=== PATIENT | male | born 1970 | race Caucasian/White ===

== ENCOUNTER 2017-12-18 04:19 | Inpatient (IN) | payer MEDICARE, OTHER ==
[~2017-12-18] VITALS: Ht 180.3 cm; Wt 63.5 kg
--- NOTE | 2017-12-18 04:40 | NUR ---
PT BIB [facility]09 PRESENTING W/ C/O RT HIP/BUTTOCKS ABSCESS R/T IV DRUG USE. 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 PT IS A&OX4. NO CO, NO SOB.
--- NOTE | 2017-12-18 04:46 | NUR ---
DR MARÍA MARTIN MD AT BEDSIDE FOR MSE.
[2017-12-18] MEDS ORDERED: VANCOMYCIN IV 1,000 MG in IV DEXTROSE 5% 250 ML IV ONE (05:00)
[2017-12-18] MEDS ORDERED: IV NORMAL SALINE 1000 ML BAG IV ONE ×2 (05:00→07:15)
[2017-12-18] MEDS ORDERED: MORPHINE SULFATE 2 MG/1 ML DISP.SYRIN IV ONE (05:00)
[2017-12-18] MEDS ORDERED: CLINDAMYCIN PHOSPHATE IV 900 MG in IV DEXTROSE 5% 100 ML IV ONE (05:00)
[2017-12-18] MEDS ORDERED: CLINDAMYCIN PHOSPHATE 900 MG/6 ML VIAL ONE (05:07)
[2017-12-18] MEDS ORDERED: VANCOMYCIN IV 200 ML ONE (05:09)
[2017-12-18] MEDS ORDERED: MORPHINE SULFATE 4 MG/1 ML DISP.SYRIN ONE ×3 (05:09→11:36)
--- NOTE | 2017-12-18 05:15 | NUR ---
LAB AT PT BEDSIDE FOR BLOOD DRAW.
[2017-12-18] MEDS ORDERED: CEFTRIAXONE 1 G VIAL ONE (06:00)
[2017-12-18] MEDS ORDERED: LIDOCAINE HCL 2% 20 ML VIAL ONE (06:00)
[2017-12-18] MEDS ORDERED: ONDANSETRON 4 MG/2 ML VIAL ONE ×2 (06:02→06:26)
[2017-12-18] MEDS ORDERED: ONDANSETRON 4 MG/2 ML VIAL IM ONE (06:30)
[2017-12-18] MEDS ORDERED: ONDANSETRON 4 MG/2 ML VIAL IV ONE (06:30)
[2017-12-18] MEDS ORDERED: MORPHINE SULFATE 4 MG/1 ML DISP.SYRIN IM ONE (06:30)
--- NOTE | 2017-12-18 06:30 | NUR ---
AFTER MULTIPLE FAILED ATTEMPTS TO OBTAIN PERIPHERAL IV ACCESS, PT CONSENTED FOR ER MD TO PLACE CENTRAL LINE. AT THIS TIME, THE REMAINING LABS WERE COLLECTED AND SENT TO LAB.
--- NOTE | 2017-12-18 06:41 | NUR ---
RADIOLOGY AT [facility] FOR XRAY
[2017-12-18 06:45] LABS: BASOPHILS % (AUTO) 0.2 % (0.0-2.0); HEMATOCRIT 35.4 % (36.7-47.1); HEMOGLOBIN 12.3 g/dL (12.5-16.3); LYMPHOCYTES # (AUTO) 0.8 K/uL (20.0-40.0); LYMPHOCYTES % (AUTO) 4.4 % (20.5-51.5); MEAN CORPUSCULAR HEMOGLOBIN 28.8 uug (23.8-33.4); MEAN CORPUSCULAR HGB CONC 35 g/dL (32.5-36.3); MEAN CORPUSCULAR VOLUME 82.5 fL (73.0-96.2); MONOCYTES # (AUTO) 1.5 K/uL (2.0-10.0); MONOCYTES % (AUTO) 7.9 % (0.0-11.0); NEUTROPHILS # (AUTO) 16.1 K/uL (1.8-8.9); NEUTROPHILS % (AUTO) 87.5 % (38.5-71.5); PLATELET COUNT (AUTO) 376 K/uL (152-348); RED BLOOD CELL COUNT(AUTO) 4.29 MIL/uL (4.06-5.63); WHITE BLOOD COUNT (AUTO) 18.4 K/uL (3.6-10.2)
[2017-12-18 06:57] LABS: CREATININE 0.8 mg/dL (0.6-1.3); POTASSIUM 3.1 mmol/L (3.5-5.1)
[2017-12-18 07:06] LABS: BILIRUBIN,DIRECT 0.3 mg/dL (0.0-0.2); BILIRUBIN,TOTAL 0.7 mg/dL (0.2-1.0); TOTAL PROTEIN, SERUM 7.6 g/dL (6.4-8.2)
--- NOTE | 2017-12-18 07:26 | NUR ---
REPORT GIVEN TO RUDY ZAIDI.
--- NOTE | 2017-12-18 07:35 | NUR ---
PT IS RESTING IN BED #2B. CODE SEPSIS WAS CALLED BY DR IGLESIAS. CODE SEPSIS PROTOCOL STARTED.
[2017-12-18] MEDS ORDERED: IOHEXOL 300MG/ML 100 ML INFUS..BTL ONE (08:07)
[2017-12-18] MEDS ORDERED: SWABABLE VALVE TRANSFER SET EA MC ONE (08:07)
[2017-12-18] MEDS ORDERED: NORMAL SALINE FLUSH 10 ML DISP.SYRIN ONE (08:07)
[2017-12-18] MEDS ORDERED: IV NORMAL SALINE 100 ML ONE (08:08)
[2017-12-18] MEDS ORDERED: ONDANSETRON 4 MG/2 ML VIAL IV PRN (10:15)
[2017-12-18] MEDS ORDERED: MORPHINE SULFATE 2 MG/1 ML DISP.SYRIN IV PRN (10:15)
[2017-12-18] MEDS ORDERED: ACETAMINOPHEN 325 MG TABLET PO PRN (10:15)
[2017-12-18] MEDS ORDERED: MAGNESIUM HYDROXIDE 30 ML LIQUID UDC PO PRN (10:15)
[2017-12-18] MEDS ORDERED: Z GUARD REMEDY PASTE 57 GM TUBE TOP PRN (10:15)
--- NOTE | 2017-12-18 10:15 | NUR ---
MALINDA PAGE EVALUATED THE PT. PT WAS TRANSFERED TO ROOM #221. REPORT WAS GIVEN TO RUDY M/Amy.
[2017-12-18 10:21] LABS: *BILIRUBIN,URIN NEGATIVE (NEGATIVE); *BLOOD, URINE NEGATIVE (NEGATIVE); *CLARITY,URINE CLEAR (CLEAR); *COLOR,URINE YELLOW (YELLOW); *KETONES,URINE NEGATIVE (NEGATIVE); *PROTEIN,URINE TRACE (NEGATIVE); LEUKOCYTE ESTERASE ,URINE NEGATIVE (NEGATIVE); NITRITE, URINE NEGATIVE (NEGATIVE); UGLUCOSE NEGATIVE (NEGATIVE)
[2017-12-18 10:27] LABS: BACTERIA,URINE FEW /HPF (NONE SEEN); RBC,URINE 0-3 /HPF (0-3); SQUAMOUS EPITHELIAL CELL,UR FEW /HPF (NONE SEEN); WBC,URINE 0-3 /HPF (0-3)
--- NOTE | 2017-12-18 10:40 | NUR ---
RECIEVED PATIENT FROM ER TO ROOM 221 AWAKE ALERT COOPERATE VS TAKEN STABLE RT BUTTOCK ABSCESS SWELLING AND REDNESS SCANT AMT OF DRAINAGE WOUND C&S SENT TO LAB AND PICTURE TAKEN CALL LIGHT IN REACH AND REMIND TO CALL WHEN NEEDED
[2017-12-18] MEDS ORDERED: DEXTROSE 50% 50 ML DISP.SYRIN IV PRN (10:45)
[2017-12-18] MEDS ORDERED: POTASSIUM CHLORIDE 20 MEQ TAB.PRT.SR PO ONE (10:45)
--- NOTE | 2017-12-18 11:00 | NUR ---
DR SELLERS CALL AND STATE WANT TO DO SURGERY FLAQUITO CONSENT FOR I&D OF RT BUTTOCK ABSCESS SIGNS BY PATIENT ORDER AND Renetta PURI CORK MOLDER SEE PATIENT AND ADM ORDER IN CHART
[2017-12-18] MEDS ORDERED: BUPIVACAINE 0.25% 30 ML VIAL ONE (11:08)
[2017-12-18] MEDS ORDERED: LIDOCAINE 1%-EPI 1:100,000 20 ML VIAL ONE (11:08)
[2017-12-18 11:09] VITALS: BP 107/48
--- NOTE | 2017-12-18 11:13 | NUR ---
Clinical Pharmacy Note: Vancomycin Dosing per Pharmacy Subjective: Vancomycin IV to start on this 47 yo male patient for abscess. Patient received vanco 1gm today at 0700 x1 in ED Objective: BUN 17/Scr 0.8 WBC 18.9 Temperature 98.3 ht 180 cm wt 63.5 kg Assessment/Plan: Will start vancomycin 1000mg IVPB Q11hr for predicted vanco trough level of 15.5 mcg/ml at steady state. 2nd dose is due today at 1800. Will draw a vancomycin trough level prior to the 4th dose of vancomycin (not ordered yet). Will monitor renal function and adjust vancomycin dose, if needed, should renal function change significantly. Will follow daily.
[2017-12-18] MEDS ORDERED: POLYMYXIN B SULFATE 500,000 UNITS, BACITRACIN 50,000 UNITS, NORMAL SALINE 20 ML MC ONE ×3 (11:15)
--- NOTE | 2017-12-18 11:15 | NUR ---
DR SELLERS CAME AND SEEN PATIENT AND OR NURSE TAKE PATIENT DOWN TO SURGERY CONDITION STABLE TRIPLE LUMEN IV SITE FROM ER INTACT
[2017-12-18] MEDS: BLOOD SUGAR DIAGNOSTIC 1 EACH STRIP VI SCH ×4 (11:30→20:12)
[2017-12-18 12:53] VITALS: BP 102/61
[2017-12-18] MEDS: IV NS 1000 ML 1,000 ML IV PRN (13:00)
--- NOTE | 2017-12-18 13:00 | NUR ---
BACK TO ROOM VS TAKEN STABLE NO SOB OR PAIN DSG AT RT BUTTOCK INTACT REFUSED TO EAT LUNCH STATE WANT TO SLEEP AT THIS TIME
[2017-12-18] MEDS ORDERED: CEFAZOLIN 1 G in PREMIXED 1 EACH IV SCH (14:00)
[2017-12-18] MEDS: CLINDAMYCIN PHOSPHATE IV 900 MG in IV DEXTROSE 5% 100 ML IV SCH ×2 (15:17→21:23)
[2017-12-18] MEDS: PIPERACILLIN/TAZOBACTAM/D5W 50 ML IV SCH ×2 (15:17→20:12)
[2017-12-18 15:21] VITALS: BP 106/61
[2017-12-18] MEDS: INSULIN REGULAR, HUMAN 300 UNIT/3 ML VIAL SQ PRN ×2 (17:10→20:15)
[2017-12-18] MEDS: VANCOMYCIN IV 1 G in PREMIXED 0 EACH IV SCH (17:27)
--- NOTE | 2017-12-18 17:30 | NUR ---
STABLE CONDITION NO ACUTE DISTRESS PAIN UNDER CONTROL CONTINUE IVF AND ANTIBIOTICS ORDER DSG AT RT BUTTOCK INPLACE SAFETY MEASURE PROVIDED CALL LIGHT IN REACH
--- NOTE | 2017-12-18 20:00 | NUR ---
RECEIVED PATIENT AWAKE IN BED, AAOX4. DENIES PAIN OR ANY DISTRESS ON ASSESSMENT. NO FEVER AT OR S/S OF INFECTION AT THIS TIME. SAFETY MEASURES IN PLACE. WILL CONTINUE TO MONITOR PATIENT
[2017-12-18 20:02] VITALS: BP 99/60
[2017-12-19] MEDS: PIPERACILLIN/TAZOBACTAM/D5W 50 ML IV SCH ×4 (02:04→20:09)
[2017-12-19] MEDS: IV NS 1000 ML 1,000 ML IV PRN ×2 (02:09→20:02)
[2017-12-19] MEDS: VANCOMYCIN IV 1 G in PREMIXED 0 EACH IV SCH ×2 (04:07→16:16)
[2017-12-19 04:25] VITALS: BP 99/58
[2017-12-19] MEDS: MORPHINE SULFATE 4 MG/1 ML DISP.SYRIN IV PRN ×3 (05:58→19:05)
[2017-12-19] MEDS: CLINDAMYCIN PHOSPHATE IV 900 MG in IV DEXTROSE 5% 100 ML IV SCH ×3 (06:01→21:20)
[2017-12-19] MEDS: PANTOPRAZOLE SODIUM 40 MG TABLET.DR PO SCH (06:01)
[2017-12-19 06:22] LABS: BASOPHILS % (AUTO) 0.3 % (0.0-2.0); EOSINOPHILS % (AUTO) 0.3 % (0.0-7.0); HEMATOCRIT 33.7 % (36.7-47.1); HEMOGLOBIN 11.4 g/dL (12.5-16.3); LYMPHOCYTES # (AUTO) 1.6 K/uL (20.0-40.0); LYMPHOCYTES % (AUTO) 14.8 % (20.5-51.5); MEAN CORPUSCULAR HEMOGLOBIN 28.3 uug (23.8-33.4); MEAN CORPUSCULAR HGB CONC 34 g/dL (32.5-36.3); MEAN CORPUSCULAR VOLUME 83.5 fL (73.0-96.2); MONOCYTES % (AUTO) 9.6 % (0.0-11.0); NEUTROPHILS # (AUTO) 7.9 K/uL (1.8-8.9); PLATELET COUNT (AUTO) 355 K/uL (152-348); RED BLOOD CELL COUNT(AUTO) 4.03 MIL/uL (4.06-5.63); WHITE BLOOD COUNT (AUTO) 10.5 K/uL (3.6-10.2)
--- NOTE | 2017-12-19 06:36 | NUR ---
PATIENT SLEPT WELL THROUGHOUT THE SHIFT, PAIN MEDS GIVEN X1 REQUESTED BY PATIENT. NO FEVER ON THIS SHIFT. INCISION SITES DRAINED WITH COPIOUS AMOUNT OF BROWNISH PUS, SITE CLEANSED AND NEW DRESSING APPLIED TO RIGHT BUTTOCK. SAFETY MEASURES MAINTAINED AT ALL TIMES
[2017-12-19 06:39] LABS: CREATININE 0.9 mg/dL (0.6-1.3); MAGNESIUM 2.1 mg/dL (1.8-2.4); PHOSPHOROUS 2.3 mg/dL (2.5-4.9); POTASSIUM 3.1 mmol/L (3.5-5.1)
[2017-12-19] MEDS: BLOOD SUGAR DIAGNOSTIC 1 EACH STRIP VI SCH ×4 (06:52→20:38)
--- NOTE | 2017-12-19 07:20 | NUR ---
Received pt in bed, AOx4. Pt is able to verbalize need. No immediate s/s of SOB, distress. Pt has right side discomfort due to surgical I and D yesterday
[2017-12-19] MEDS: INSULIN REGULAR, HUMAN 300 UNIT/3 ML VIAL SQ PRN ×3 (07:57→20:40)
--- NOTE | 2017-12-19 08:27 | NUR ---
PT RESTING IN BED. NO COMPLAINTS AT THIS TIME. SURGICAL INCISION DRESSING CHANGED. NOTED CONTINUOUS DRAINING FROM SURGICAL INCISION. WILL CONTINUE TO MONITOR AND PROVIDE DRESSING CHANGE NEEDED.
[2017-12-19] MEDS: HYDROCODONE/APAP 10-325 MG TABLET PO PRN ×2 (08:53→15:49)
--- NOTE | 2017-12-19 09:02 | NUR ---
Noted a previous surgical site on the pt.'s left side outer back open. Janet aware and states to pack open wound with Betadine. Second dressing done, pt. refused packing at this time. Informed case management in regards to Karie, case management will follow up.
[2017-12-19 11:38] VITALS: BP 97/57
[2017-12-19] MEDS ORDERED: POTASSIUM CHLORIDE 20 MEQ TAB.PRT.SR PO ONE (12:45)
--- NOTE | 2017-12-19 13:38 | NUR ---
Third wound dressing done as tolerated by the pt. Noted thick brown pus oozing from wound sites. Wound was irrigated with NS and packed with betaine gauze from outer wound to inner wound of buttock. Pt tolerated procedure well and was able to verbalize when he was in pain and when to stop. Pt. refused to have the wound on the back (left side) to be packed at this time.
--- NOTE | 2017-12-19 14:48 | NUR ---
WOUND CARE CONSULT: PT FOLLOWED BY SURGICAL TEAM. DEFER TO SURGICAL TEAM FOR WOUND TREATMENT PLAN.
[2017-12-19] MEDS ORDERED: NEUTRA PHOS PACKET PO ONE (15:15)
[2017-12-19 15:45] VITALS: BP 98/58
--- NOTE | 2017-12-19 16:39 | NUR ---
Clinical Pharmacy Note: Vancomycin Dosing per Pharmacy Subjective: Vancomycin IV to continue on this 47 yo male patient for abscess. Objective: BUN 11/Scr 0.9 WBC 10.5 Temperature 98.5 Vanco trough level: 8.1 ht 180 cm wt 63.5 kg Assessment/Plan: Since vanco trough level is 8.1, will change dose to vancomycin 1000mg IVPB Q9hr for predicted vanco trough level of 15 mcg/ml at steady state. 1st dose is due today at 1600. Will draw a vancomycin trough level prior to the 4th dose of vancomycin (not ordered yet). Will monitor renal function and adjust vancomycin dose, if needed, should renal function change significantly. Will follow daily.
--- NOTE | 2017-12-19 18:30 | NUR ---
Left lower back/left buttock open wound covered. Pt refused packing
--- NOTE | 2017-12-19 19:20 | NUR ---
RECEIVED PT LYING IN BED, ASLEEP BUT EASILY AROUSE TO VERBAL STIMULI. AOX4. PAIN TOLERABLE AT THIS TIME PER PT. IN NO ACUTE DISTRESS. O2 SAT AT97% ON RA. CENTRAL LINE INTACT AND PATENT. IVF INFUSING. SAFETY MEASURE INITIATED AND CALL CLARK WITHIN REACH.
[2017-12-19 20:00] VITALS: BP 98/61
[2017-12-19] MEDS: LACTOBACILLUS RHAMNOSUS GG 1 EACH CAPSULE PO SCH (20:09)
[2017-12-20] MEDS: VANCOMYCIN IV 1 G in PREMIXED 0 EACH IV SCH ×3 (00:01→19:44)
[2017-12-20] MEDS: MORPHINE SULFATE 4 MG/1 ML DISP.SYRIN IV PRN ×4 (00:27→15:49)
[2017-12-20] MEDS: PIPERACILLIN/TAZOBACTAM/D5W 50 ML IV SCH ×5 (02:16→21:52)
[2017-12-20 04:26] VITALS: BP 98/57
[2017-12-20] MEDS: CLINDAMYCIN PHOSPHATE IV 900 MG in IV DEXTROSE 5% 100 ML IV SCH ×3 (05:20→23:14)
--- NOTE | 2017-12-20 05:57 | NUR ---
AOX4. IN NO ACUTE DISTRESS. CENTRAL LINE INTACT AND PATENT. IVF INFUSING. NO ADVERSE REACTION NOTED FROM IV ABX. NEEDS ATTENDED TO AND MET. WOUND CARE PROVIDED TO WOUND ON ALEJANDRA. BUTTOCK PER ORDER. WITH MODERATE AMOUNT OF DRAINAGE NOTED IN RIGHT BUTTOCK. MINIMAL DRAINAGE ON LEFT BUTTOCK. SAFETY MEASURE MAINTAINED AND CALL CLARK WITHIN REACH.
[2017-12-20 06:10] LABS: CREATININE 0.9 mg/dL (0.6-1.3); PHOSPHOROUS 3.2 mg/dL (2.5-4.9); POTASSIUM 3.5 mmol/L (3.5-5.1)
[2017-12-20] MEDS: BLOOD SUGAR DIAGNOSTIC 1 EACH STRIP VI SCH ×4 (06:31→20:24)
[2017-12-20] MEDS: PANTOPRAZOLE SODIUM 40 MG TABLET.DR PO SCH (06:31)
[2017-12-20 08:00] VITALS: BP 94/61
[2017-12-20] MEDS: LACTOBACILLUS RHAMNOSUS GG 1 EACH CAPSULE PO SCH ×2 (08:24→20:23)
--- NOTE | 2017-12-20 08:59 | NUR ---
Pt seen by PT for eval. Arjun well. Per PT, pt with steady gait and clear for ambulation without aid. Will continue to monitor.
--- NOTE | 2017-12-20 10:09 | NUR ---
Seen and examined by Kevin Perez NP with no new orders at this time.
[2017-12-20 11:49] VITALS: BP 98/65
[2017-12-20] MEDS: INSULIN REGULAR, HUMAN 300 UNIT/3 ML VIAL SQ PRN ×2 (12:42→20:27)
--- NOTE | 2017-12-20 13:16 | NUR ---
Informed by PARKING METER COLLECTOR that the pt's room smelled like smoke. Pt stated he had one cigarette taking two puffs and that he was out of cigarettes. Promised not to do ot again. Cigarette box found in the bathroom trash can. Removed grocery store bagger from the pt's possession.
[2017-12-20] MEDS: IV NS 1000 ML 1,000 ML IV PRN (14:31)
--- NOTE | 2017-12-20 16:03 | NUR ---
Clinical Pharmacy Note: Vancomycin Dosing per Pharmacy Subjective: Vancomycin IV to continue on this 47 yo male patient for abscess. Objective: BUN 10/Scr 0.9 WBC 10.5 (12/19) Temperature 98.1 ht 180 cm wt 63.5 kg Assessment/Plan: Will continue vancomycin 1000mg IVPB Q9hr for predicted vanco trough level of 15 mcg/ml at steady state. 3rd dose was given today at 1000. Will draw a vancomycin trough level prior to the 4th dose of vancomycin (ordered for [facility] at 1830). Will monitor renal function and adjust vancomycin dose, if needed, should renal function change significantly. Will follow daily. Addendum: 12/20/17 at 1928 by ARACELIS PILLAI ADM VANCOMYCIN TROUGH LEVEL 15.3 CONTINUE SAME DOSE OF VANCOMYCIN 1GM Q9H IVPB
[2017-12-20 16:13] VITALS: BP 95/64
--- NOTE | 2017-12-20 19:40 | NUR ---
PATIENT RESTING ON BED ALERT AND AWAKE, NO SOB. CENTRAL LINE RT FEMORAL, DRESSING CLEAN AND INTACT. IV ATB INFUSING ORDERED. DRESSING ON RT AND LEFT BUTTOCK CLEAN AND INTACT. ALL NEEDS MET. CALL LIGHT IN REACH.
[2017-12-20 20:00] VITALS: BP 96/61
[2017-12-20] MEDS: HYDROCODONE/APAP 10-325 MG TABLET PO PRN (20:23)
[2017-12-21] MEDS: MORPHINE SULFATE 4 MG/1 ML DISP.SYRIN IV PRN ×5 (00:03→20:02)
[2017-12-21] MEDS: PIPERACILLIN/TAZOBACTAM/D5W 50 ML IV SCH ×4 (02:52→20:01)
[2017-12-21 04:00] VITALS: BP 95/66
[2017-12-21] MEDS: VANCOMYCIN IV 1 G in PREMIXED 0 EACH IV SCH ×3 (04:18→23:03)
--- NOTE | 2017-12-21 05:00 | NUR ---
CENTRAL LINE DRESSING CHANGE DONE ON RT FEMORAL USING STERILE TECHNIQUE.
[2017-12-21] MEDS: CLINDAMYCIN PHOSPHATE IV 900 MG in IV DEXTROSE 5% 100 ML IV SCH ×3 (05:55→21:17)
--- NOTE | 2017-12-21 06:26 | NUR ---
PATIENT SLEEPING INTERMITTENTLY, CONTINUING ON PAIN MEDICATION ORDERED ON C/O OF RT BUTTOCK PAIN. DRESSING ON THE BUTTOCK AREA IS CLEAN AND INTACT RT FEMORAL CENTRAL LINE CHANGING DONE. CONTINUING ON IV FLUIDS AND ANTIBIOTICS ORDERED. TUCKER BS 102.
[2017-12-21] MEDS: PANTOPRAZOLE SODIUM 40 MG TABLET.DR PO SCH (06:44)
[2017-12-21] MEDS: BLOOD SUGAR DIAGNOSTIC 1 EACH STRIP VI SCH ×4 (06:45→20:10)
[2017-12-21 07:08] LABS: BASOPHILS % (AUTO) 0.6 % (0.0-2.0); EOSINOPHILS # (AUTO) 0.3 K/uL (0.0-0.7); EOSINOPHILS % (AUTO) 4.4 % (0.0-7.0); LYMPHOCYTES # (AUTO) 1.6 K/uL (20.0-40.0); LYMPHOCYTES % (AUTO) 22.5 % (20.5-51.5); MEAN CORPUSCULAR HEMOGLOBIN 28.6 uug (23.8-33.4); MEAN CORPUSCULAR HGB CONC 34 g/dL (32.5-36.3); MEAN CORPUSCULAR VOLUME 83.5 fL (73.0-96.2); MONOCYTES # (AUTO) 0.6 K/uL (2.0-10.0); MONOCYTES % (AUTO) 8.6 % (0.0-11.0); NEUTROPHILS # (AUTO) 4.5 K/uL (1.8-8.9); NEUTROPHILS % (AUTO) 63.9 % (38.5-71.5); PLATELET COUNT (AUTO) 352 K/uL (152-348); RED BLOOD CELL COUNT(AUTO) 3.83 MIL/uL (4.06-5.63)
[2017-12-21 07:12] LABS: CREATININE 0.9 mg/dL (0.6-1.3); POTASSIUM 3.8 mmol/L (3.5-5.1)
[2017-12-21] MEDS: IV NS 1000 ML 1,000 ML IV PRN (07:40)
[2017-12-21] MEDS: LACTOBACILLUS RHAMNOSUS GG 1 EACH CAPSULE PO SCH ×2 (08:58→20:01)
--- NOTE | 2017-12-21 09:38 | NUR ---
PATIENT REQUESTED FOR PAIN MEDICATIONS HAS PAIN IN HIS BACK MEDICATED ORDERED ASSISTED WITH REPOSITIONING AND WILL OBSERVE.
[2017-12-21] MEDS: INSULIN REGULAR, HUMAN 300 UNIT/3 ML VIAL SQ PRN (11:47)
[2017-12-21 12:05] VITALS: BP 99/63
--- NOTE | 2017-12-21 13:48 | NUR ---
Clinical Pharmacy Note: Vancomycin Dosing per Pharmacy Subjective: Vancomycin IV to continue on this 47 yo male patient for abscess. Objective: BUN 9/Scr 0.9 WBC 7.0 Temperature 97.8 ht 180 cm wt 63.5 kg Vancomycin trough 15.3 on 12/20 at 1830 Assessment/Plan: Since Vancomycin trough is within the range, will continue same dose fo 1gram every 9 hrs. Will monitor renal function and adjust vancomycin dose, if needed, should renal function change significantly. Will follow daily.
[2017-12-21 16:20] VITALS: BP 91/65
--- NOTE | 2017-12-21 17:00 | NUR ---
REMAIN ON ANTIBIOTICS ORDERED WITH NO ADVERSE OR ALLERGIC REACTIONS AT THIS TIME.CONTINUE TO REQUEST FOR PAIN MEDICATIONS AND HELPFUL.TX TO BUTTOCKS HIP ABCESS ORDERED MADE COMFORTABLE WITH NO DISTRESS AT THIS TIME.
[2017-12-21 19:30] VITALS: BP 103/76
--- NOTE | 2017-12-21 20:35 | NUR ---
PATIENT IS AWAKE IN BED, AAOX4. C/O PAIN TO RIGHT BUTTOCKS, PAIN MEDS GIVEN REQUESTED BY PATIENT. SAFETY MEASURES IN PLACE CALL LIGHT LEFT WITHIN PATIENT'S REACH.
[2017-12-22] MEDS: IV NS 1000 ML 1,000 ML IV PRN ×2 (00:08→14:32)
[2017-12-22] MEDS: MORPHINE SULFATE 4 MG/1 ML DISP.SYRIN IV PRN ×7 (00:14→21:51)
[2017-12-22] MEDS: PIPERACILLIN/TAZOBACTAM/D5W 50 ML IV SCH ×4 (03:39→20:25)
[2017-12-22 05:01] VITALS: BP 99/62
[2017-12-22] MEDS: CLINDAMYCIN PHOSPHATE IV 900 MG in IV DEXTROSE 5% 100 ML IV SCH ×2 (05:04→13:30)
[2017-12-22] MEDS: VANCOMYCIN IV 1 G in PREMIXED 0 EACH IV SCH ×2 (06:34→15:56)
[2017-12-22] MEDS: PANTOPRAZOLE SODIUM 40 MG TABLET.DR PO SCH (06:36)
[2017-12-22] MEDS: BLOOD SUGAR DIAGNOSTIC 1 EACH STRIP VI SCH ×4 (06:39→21:20)
--- NOTE | 2017-12-22 06:44 | NUR ---
PATIENT SLEPT ON AND OFF THROUGHOUT THE SHIFT. CONSTANTLY PUSHING THE CALL LIGHT ASKING FOR PAIN MEDS EVERY 2 HOURS REMINDED PATIENT PAIN MEDS WILL BE GIVEN WHEN DUE. PATIENT VERY MANIPULATIVE AND DEMANDING ASKING FOR SNACKS EVERY HOUR DESPITE BEING GIVEN SNACKS MULTIPLE TIMES. NO FEVER ON THIS SHIFT, NO SIGNIFICANT CHANGE IN STATUS.
--- NOTE | 2017-12-22 07:25 | NUR ---
PATIENT IS AWAKE ALERT AND ORIENTED REMAIN ON PAIN MANAGEMENT ORDERED AND HELPFUL DRESSING ON RIGHT BUTTOCKS REMAIN DRY AND INTACT AT THIS TIME CONTINUE ON IV ANTIBIOTICS ORDERED WITH NO ADVERSE OR ALLERGIC REACTIONS AT THIS TIME MADE COMFORTABLE AND WILL CONTINUE TO OBSERVE PT
[2017-12-22] MEDS: LACTOBACILLUS RHAMNOSUS GG 1 EACH CAPSULE PO SCH ×2 (09:06→20:25)
[2017-12-22 11:31] VITALS: BP 93/57
--- NOTE | 2017-12-22 13:33 | NUR ---
Clinical Pharmacy Note: Vancomycin Dosing per Pharmacy Subjective: Vancomycin IV to continue on this 47 yo male patient for abscess. Objective: BUN 9/Scr 0.9 (12/21) WBC 7.0 (12/21) Temperature 98.1 ht 180 cm wt 63.5 kg Vancomycin trough 15.3 on 12/20 at 1830 Assessment/Plan: Will continue same dose of vanco 1gram every 9 hrs for today. Will monitor renal function and adjust vancomycin dose, if needed, should renal function change significantly. Will follow daily.
--- NOTE | 2017-12-22 14:00 | NUR ---
PATIENT IS NON COMPLIANT WAS SEEN BY THE SECURITY DOWN STAIRS EVEN AFTER I TOLD HIM NOT TO GO DOWN MIGHT RUN THE RISKS OF DISLODGING HIS FEMORAL CENTRAL LINE.ASSISTED BACK INTO HIS ROOM CENTRAL LINE CHECKED AND PATENT WITH IVF IN PROGRESS ORDERED AT THIS TIME.
[2017-12-22 15:13] VITALS: BP 90/51
--- NOTE | 2017-12-22 17:22 | NUR ---
PATIENT SEEN AND EXAMINED BY ELIZABETH CAMPOVERDE JOINT MACHINE OPERATOR WITH NEW ORDERS AND NOTED.
[2017-12-22 19:00] VITALS: BP 94/58
[2017-12-23] MEDS: PIPERACILLIN/TAZOBACTAM/D5W 50 ML IV SCH ×4 (01:57→20:58)
[2017-12-23] MEDS: MORPHINE SULFATE 4 MG/1 ML DISP.SYRIN IV PRN ×5 (01:57→20:59)
[2017-12-23 04:00] VITALS: BP 94/57
[2017-12-23 04:32] VITALS: BP 85/43
[2017-12-23 06:07] LABS: BASOPHILS # (AUTO) 0.1 K/uL (0.0-8.0); EOSINOPHILS # (AUTO) 0.5 K/uL (0.0-0.7); EOSINOPHILS % (AUTO) 5.2 % (0.0-7.0); HEMATOCRIT 34.4 % (36.7-47.1); HEMOGLOBIN 11.7 g/dL (12.5-16.3); LYMPHOCYTES # (AUTO) 1.8 K/uL (20.0-40.0); MEAN CORPUSCULAR HGB CONC 34 g/dL (32.5-36.3); MEAN CORPUSCULAR VOLUME 82.2 fL (73.0-96.2); MONOCYTES # (AUTO) 0.9 K/uL (2.0-10.0); MONOCYTES % (AUTO) 9.3 % (0.0-11.0); NEUTROPHILS # (AUTO) 5.9 K/uL (1.8-8.9); NEUTROPHILS % (AUTO) 64.5 % (38.5-71.5); PLATELET COUNT (AUTO) 354 K/uL (152-348); RED BLOOD CELL COUNT(AUTO) 4.18 MIL/uL (4.06-5.63); WHITE BLOOD COUNT (AUTO) 9.2 K/uL (3.6-10.2)
[2017-12-23] MEDS: PANTOPRAZOLE SODIUM 40 MG TABLET.DR PO SCH (06:12)
--- NOTE | 2017-12-23 06:44 | NUR ---
PT ALERT,ORIENTED,CONTINUE TO HAVE PAIN AT WOUND SITES, DRESSING INTACT, EATS AND DRINKS ALL THE TIME WITH BS WNL. BP LOW NOTED THIS MORNING PAIN SHOT NOT GIVEN BP RECHECK STILL ON 90'S PT MADE AWARE WILL NOT GIVE IV PAIN MEDS IF NOT ABOVE 100'S, PT AMBULATING AND WENT DOWN TO [place] TO GET FOOD, NOT LETTING US KNOW, PT AWARE HE IS NOT ALLOWED TO GO DOWN ,BUT HE SAID HE WANTS TO GET CEREAL.CONTINUE WITH IV FLUIDS, AND ANTIBIOTICS,BLOOD DRAWN FROM THE CETRAL LINE RIGHT GROIN.
[2017-12-23] MEDS: BLOOD SUGAR DIAGNOSTIC 1 EACH STRIP VI SCH ×4 (07:32→20:58)
[2017-12-23] MEDS: LACTOBACILLUS RHAMNOSUS GG 1 EACH CAPSULE PO SCH ×2 (08:41→20:58)
[2017-12-23] MEDS: INSULIN REGULAR, HUMAN 300 UNIT/3 ML VIAL SQ PRN (08:45)
[2017-12-23 11:56] VITALS: BP 98/61
[2017-12-23] MEDS: IV NS 1000 ML 1,000 ML IV PRN (14:51)
[2017-12-23 15:55] VITALS: BP 88/54
--- NOTE | 2017-12-23 18:34 | NUR ---
PT RESTING IN BED, NO SIGNS OF DISTRESS, AOX4, WOUND CARE PROVIDED, DRESSING CHANGED, CONTINUE TO MONITOR PT.
--- NOTE | 2017-12-23 19:25 | NUR ---
RECEIVED PT AWAKE, ALERT, AND ORIENTEDX4. PT SHOWS NO SIGNS OF DISTRESS. PT IV INTACT AND PATENT.CALL LIGHT WITHIN REACH, BED ALARM ON, IN LOW POSITION ,AND SIDE RAILS X2UP. WILL CONTINUE TO MONITOR.
[2017-12-23 19:42] VITALS: BP 97/58
[2017-12-24] MEDS: TEMAZEPAM 15 MG CAPSULE PO PRN (01:15)
[2017-12-24] MEDS: MORPHINE SULFATE 4 MG/1 ML DISP.SYRIN IV PRN ×6 (01:16→22:48)
[2017-12-24] MEDS: PIPERACILLIN/TAZOBACTAM/D5W 50 ML IV SCH ×4 (02:11→20:28)
[2017-12-24] MEDS: IV NS 1000 ML 1,000 ML IV PRN ×2 (02:15→14:25)
[2017-12-24 03:43] VITALS: BP 88/54
[2017-12-24 04:06] LABS: *BASOS 0 % (Not Estab.); *EOS 5 % (Not Estab.); *EOS ABSOLUTE 0.5 x10E3/uL (0.0-0.4); *HGB 11.7 g/dL (13.0-17.7); *IMMATURE GRANULOCYTES 0.3 x10E3/uL (0.0-0.1); *IMMATURE GRANULOCYTES 3 % (Not Estab.); *LYMPHOCYTES 23 % (Not Estab.); *LYMPHOCYTES ABSOLUTE 1.9 x10E3/uL (0.7-3.1); *MCH 27.1 pg (26.6-33.0); *MCHC 32.5 g/dL (31.5-35.7); *MCV 83 fL (79-97); *MONOCYTES 8 % (Not Estab.); *MONOCYTES ABSOLUTE 0.7 x10E3/uL (0.1-0.9); *NEUTROPHILS 61 % (Not Estab.); *NEUTROPHILS ABSOLUTE 5.2 x10E3/uL (1.4-7.0); *PLT 358 x10E3/uL (150-379); *RBC 4.32 x10E6/uL (4.14-5.80); *RDW 14.5 % (12.3-15.4); *WBC 8.5 x10E3/uL (3.4-10.8)
[2017-12-24] MEDS: PANTOPRAZOLE SODIUM 40 MG TABLET.DR PO SCH (06:15)
[2017-12-24] MEDS: BLOOD SUGAR DIAGNOSTIC 1 EACH STRIP VI SCH ×4 (06:42→20:29)
--- NOTE | 2017-12-24 06:55 | NUR ---
PT SLEPT INTERMITTENTLY. PT SHOWS NO SIGNS OF DISTRESS. IV INTACT AND PATENT. SAFETY AND COMFORT PROVIDED. PAIN MANAGEMENT DONE. PT AFEBRILE AND VITAL SIGNS WNL. DRESSING CHANGED DONE. WILL ENDORSE TO DAYSHIFT NURSE.
[2017-12-24] MEDS: LACTOBACILLUS RHAMNOSUS GG 1 EACH CAPSULE PO SCH ×2 (08:11→20:28)
--- NOTE | 2017-12-24 09:39 | NUR ---
pt seen on rounding. pt continues to be alert and oriented. pt iv site intact. no signs of acute distress vitals stable. will continue to monitor.
[2017-12-24 11:55] VITALS: BP 93/57
[2017-12-24 14:09] LABS: *HELPER T-LYMPH MARKR(CD4)ABSO 545 /uL (359-1519); *HELPER T-LYNPH MARKER CD4)% 28.7 % (30.8-58.5)
[2017-12-24 16:00] VITALS: BP 94/57
[2017-12-24] MEDS: INSULIN REGULAR, HUMAN 300 UNIT/3 ML VIAL SQ PRN (17:52)
[2017-12-24 19:00] VITALS: BP 133/31
--- NOTE | 2017-12-24 19:20 | NUR ---
RECEIVED PT AWAKE, ALERT, ORIENTEDX4. PT SHOWS NO SIGNS OF DISTRESS. PT IV INTACT AND PATENT. CALL LIGHT WITHIN REACH, BED ALARM ON AND IN LOW POSITION AND SIDE RAILS UPX2. WILL CONTINUE TO MONITOR.
[2017-12-25] MEDS: TEMAZEPAM 15 MG CAPSULE PO PRN (01:08)
[2017-12-25] MEDS: PIPERACILLIN/TAZOBACTAM/D5W 50 ML IV SCH ×4 (03:13→21:02)
[2017-12-25] MEDS: IV NS 1000 ML 1,000 ML IV PRN ×2 (03:17→16:31)
[2017-12-25 04:00] VITALS: BP 116/59
[2017-12-25] MEDS: MORPHINE SULFATE 4 MG/1 ML DISP.SYRIN IV PRN ×5 (04:02→21:10)
[2017-12-25 05:58] LABS: BASOPHILS # (AUTO) 0.1 K/uL (0.0-8.0); BASOPHILS % (AUTO) 0.7 % (0.0-2.0); EOSINOPHILS # (AUTO) 0.3 K/uL (0.0-0.7); EOSINOPHILS % (AUTO) 4.1 % (0.0-7.0); HEMATOCRIT 33.5 % (36.7-47.1); HEMOGLOBIN 11.6 g/dL (12.5-16.3); LYMPHOCYTES # (AUTO) 1.8 K/uL (20.0-40.0); LYMPHOCYTES % (AUTO) 23.2 % (20.5-51.5); MEAN CORPUSCULAR HEMOGLOBIN 28.9 uug (23.8-33.4); MEAN CORPUSCULAR HGB CONC 35 g/dL (32.5-36.3); MEAN CORPUSCULAR VOLUME 83.6 fL (73.0-96.2); MONOCYTES # (AUTO) 0.8 K/uL (2.0-10.0); MONOCYTES % (AUTO) 10.4 % (0.0-11.0); NEUTROPHILS # (AUTO) 4.9 K/uL (1.8-8.9); NEUTROPHILS % (AUTO) 61.6 % (38.5-71.5); PLATELET COUNT (AUTO) 309 K/uL (152-348); RED BLOOD CELL COUNT(AUTO) 4.01 MIL/uL (4.06-5.63); WHITE BLOOD COUNT (AUTO) 7.9 K/uL (3.6-10.2)
[2017-12-25 06:05] LABS: CREATININE 1.2 mg/dL (0.6-1.3); POTASSIUM 3.8 mmol/L (3.5-5.1)
[2017-12-25] MEDS: PANTOPRAZOLE SODIUM 40 MG TABLET.DR PO SCH (06:12)
--- NOTE | 2017-12-25 06:42 | NUR ---
PT SLEPT INTERMITTENTLY.PRESCRIBED MEDICATION GIVEN AND PT TOLERATED IT WELL. IV INTACT. VITAL SIGNS WNL.PAIN MANAGEMENT DONE. DRESSING CHANGED DONE. CALL LIGHT WITHIN REACH. SAFETY AND COMFORT PROVIDED. WILL ENDORSE TO DAYSHIFT NURSE.
[2017-12-25] MEDS: BLOOD SUGAR DIAGNOSTIC 1 EACH STRIP VI SCH ×4 (08:18→21:04)
[2017-12-25] MEDS: HYDROCODONE/APAP 10-325 MG TABLET PO PRN (08:23)
[2017-12-25] MEDS: INSULIN REGULAR, HUMAN 300 UNIT/3 ML VIAL SQ PRN ×3 (08:23→16:58)
[2017-12-25] MEDS: LACTOBACILLUS RHAMNOSUS GG 1 EACH CAPSULE PO SCH ×2 (08:24→21:02)
--- NOTE | 2017-12-25 09:00 | NUR ---
Received patient awake, alert x4. With pain over buttocks rated as 9/10. PRN Morphine given. With intact triple lumen right femoral IV D5NS infusing well. Dressing over buttocks, dry and intact. No loose stools noted.
[2017-12-25 12:06] VITALS: BP 98/63
[2017-12-25 16:06] VITALS: BP 102/61
[2017-12-25 20:00] VITALS: BP 92/52
--- NOTE | 2017-12-25 21:30 | NUR ---
PT'S A/A/O X4;DENIED OF PAIN OR ANY DISCOMFORT AT THIS TIME.ON IVF AT THE RIGHT GROIN AREA VIA CENTRAL LINE;IT'S CARED AT THIS TIME:CLEAN AND DRY AT THE SITE.SNACK'S GIVEN TO PT REQUEST;PT TOLERATED WELL NOTED.KEPT COMFORT.CALL-LIGHT WITHIN REACH.
[2017-12-26] MEDS: IV NS 1000 ML 1,000 ML IV PRN ×2 (02:42→14:35)
[2017-12-26] MEDS: PIPERACILLIN/TAZOBACTAM/D5W 50 ML IV SCH ×4 (02:42→20:19)
[2017-12-26 04:00] VITALS: BP 98/56
[2017-12-26] MEDS: MORPHINE SULFATE 4 MG/1 ML DISP.SYRIN IV PRN ×5 (04:12→21:34)
--- NOTE | 2017-12-26 06:30 | NUR ---
Pt's comfortable on bed;denied of pain or any discomfort.pt stated that"now I need to sleep",kept comfort.no distress noted in the shift.clean and dry at the D/S and central line sites noted.
[2017-12-26] MEDS: PANTOPRAZOLE SODIUM 40 MG TABLET.DR PO SCH (06:36)
[2017-12-26] MEDS: BLOOD SUGAR DIAGNOSTIC 1 EACH STRIP VI SCH ×4 (06:38→20:20)
--- NOTE | 2017-12-26 07:30 | NUR ---
Patient awake, alert, verbally responsive, not in any form of acute distress. He denies any pain or discomfort at this time. Assisted to his needs. Call light placed within reach . Reminded to use call light when in need of assistance with verbalized understanding.
[2017-12-26] MEDS: LACTOBACILLUS RHAMNOSUS GG 1 EACH CAPSULE PO SCH ×2 (08:18→20:19)
[2017-12-26 11:42] VITALS: BP 88/60
[2017-12-26 15:55] VITALS: BP 92/54
[2017-12-26 20:00] VITALS: BP 102/63
[2017-12-26] MEDS: TEMAZEPAM 15 MG CAPSULE PO PRN (23:55)
[2017-12-27] MEDS: PIPERACILLIN/TAZOBACTAM/D5W 50 ML IV SCH ×2 (03:33→08:16)
[2017-12-27] MEDS: IV NS 1000 ML 1,000 ML IV PRN (03:33)
[2017-12-27] MEDS: MORPHINE SULFATE 4 MG/1 ML DISP.SYRIN IV PRN ×2 (03:34→08:17)
[2017-12-27 04:00] VITALS: BP 95/53
[2017-12-27] MEDS: PANTOPRAZOLE SODIUM 40 MG TABLET.DR PO SCH (06:18)
--- NOTE | 2017-12-27 06:39 | NUR ---
PT SLEPT THROUGHOUT THE SHIFT. PT SHOWS NO SIGNS OF DISTRESS . PT IV INTACT. PT STABLE . DRESSING CHANGED. PAIN MANAGEMENT DONE. PT DID A BATH WITH ASSIST. SAFETY AND COMFORT PROVIDED. WILL ENDORSED TO DAYSHIFT NURSE.
[2017-12-27] MEDS: BLOOD SUGAR DIAGNOSTIC 1 EACH STRIP VI SCH ×2 (06:53→11:02)
--- NOTE | 2017-12-27 07:45 | NUR ---
Received pt in bed and he verbalized that he had a pain medication due at 0800. Informed the pt that I would double check to make sure and I would be in his room as soon as possible. No immediate s/s of SOB, pain, distress or discomfort noted
[2017-12-27] MEDS: LACTOBACILLUS RHAMNOSUS GG 1 EACH CAPSULE PO SCH (08:16)
--- NOTE | 2017-12-27 10:13 | NUR ---
Informed by MARILELA that the pt was walking out from his room, I turned around and saw the pt was rushing down the hallway with his cloth on. Called after him and he shouted he was discharged and was going for a smoke. I ran after him stating there was no orders yet and he said that the doctor told him that he was discharged. I saw case management coming up the stairs and told her my pt was walking away, AMA, we both ran after him towards the lobby. He once again stated he was discharged, security tried to talk to him as well as myself and Nadia. Pt had no hold orders so we we unable to stop him. He walked out the doors. After entering back into his room, noted the IV hydration still running. Pt left with a triple right side femoral line. Informed by Director that [facility] was called and a report was made to unit 428 that the pt left with his ID band and right triple lumen and left against medical advice.
== END 2017-12-27 10:15 | disposition left against medical advice (07) | DRG 871 ==
LOC: ER 04:24 → MED 09:54
PROVIDERS: ADMIT Nurse Practitioner Acute Care; ATTEND Nurse Practitioner Acute Care
PROC: 0J993ZZ Drainage of Buttock Subcutaneous Tissue and Fascia, Percutaneous Approach (ICD-10-PCS; 2017-12-18)
PROC: 06HY33Z Insertion of Infusion Device into Lower Vein, Percutaneous Approach (ICD-10-PCS; principal; 2017-12-18 11:38)
DX: A41.81 Sepsis due to Enterococcus (principal); E43 Unspecified severe protein-calorie malnutrition; L02.31 Cutaneous abscess of buttock; E87.1 Hypo-osmolality and hyponatremia; Z68.1 Body mass index [BMI] 19.9 or less, adult; E87.2 Acidosis; A41.59 Other Gram-negative sepsis; R65.20 Severe sepsis without septic shock; S31.813S Puncture wound without foreign body of right buttock, sequela; X78.8XXS Intentional self-harm by other sharp object, sequela; S31.829A Unspecified open wound of left buttock, initial encounter; X58.XXXA Exposure to other specified factors, initial encounter; Y92.89 Other specified places as the place of occurrence of the external cause; N40.0 Benign prostatic hyperplasia without lower urinary tract symptoms; F17.210 Nicotine dependence, cigarettes, uncomplicated; E86.1 Hypovolemia; E87.6 Hypokalemia; F11.10 Opioid abuse, uncomplicated; F12.90 Cannabis use, unspecified, uncomplicated; F15.90 Other stimulant use, unspecified, uncomplicated; I10 Essential (primary) hypertension; M20.002 Unspecified deformity of left finger(s); D64.9 Anemia, unspecified; R19.7 Diarrhea, unspecified
CPT/HCPCS: 36415; 70030-TC; 71045; 72193; 83605; 83735; 84100; 85025; 85730; 86361; 87040; 87070; 87075; 87077; 87086; 87536; 93005; A4217; A4649; A4663; J0690; J0696; J1815; J2270; J2405; J2543; J3370; J3490; J7030; J7060; Q9967

== ENCOUNTER 2018-02-01 01:12 | Emergency (ER) | payer MEDICARE, OTHER ==
[~2018-02-01] VITALS: Ht 180.3 cm; Wt 74.8 kg
--- NOTE | 2018-02-01 02:24 | NUR ---
Patient discharged to home in stable conditon. Written and verbal after care instructions given. Patient verbalizes understanding of instructions. WALKED OUT OF ER WITH NO DISTRESS NOTED
== END 2018-02-01 02:26 | disposition home or self-care (01) ==
LOC: ER 01:15
DX: L30.9 Dermatitis, unspecified (principal); I10 Essential (primary) hypertension
CPT/HCPCS: A4663

== ENCOUNTER 2018-03-29 10:53 | Emergency (ER) | payer MEDICARE, OTHER ==
[~2018-03-29] VITALS: Ht 177.8 cm; Wt 65.8 kg
[2018-03-29] MEDS ORDERED: [UNRECOGNIZED DRUG - REMARK] (11:05)
[2018-03-29] MEDS ORDERED: LIDOCAINE HCL 2% 20 ML VIAL IJ ONE (11:15)
--- NOTE | 2018-03-29 11:27 | NUR ---
PT IS IN ROOM #2A. DR GARCIA EVALUATED THE PT.
[2018-03-29] MEDS ORDERED: SULFAMETH/TRIMETH 800/160 MG TABLET PO ONE (11:45)
[2018-03-29] MEDS ORDERED: CEFAZOLIN 1 G VIAL IM ONE (11:45)
[2018-03-29] MEDS ORDERED: SULFAMETH/TRIMETH 800/160 MG TABLET ONE (11:49)
[2018-03-29] MEDS ORDERED: CEFAZOLIN 1 G VIAL ONE (11:49)
--- NOTE | 2018-03-29 12:03 | NUR ---
PT WAS D/C TO HOME. D/C INSTRUCTIONS GIVEN TO THE PT.
[2018-03-29 12:06] VITALS: BP 129/78
== END 2018-03-29 12:06 | disposition home or self-care (01) ==
LOC: ER 10:55
DX: L02.414 Cutaneous abscess of left upper limb (principal); R21 Rash and other nonspecific skin eruption; I10 Essential (primary) hypertension; F17.200 Nicotine dependence, unspecified, uncomplicated; F12.10 Cannabis abuse, uncomplicated; F15.10 Other stimulant abuse, uncomplicated
CPT/HCPCS: 87070; A4217; A4663; J0690

== ENCOUNTER 2018-05-21 00:50 | Emergency (ER) | payer MEDICARE, OTHER ==
[~2018-05-21] VITALS: Ht 175.3 cm; Wt 68.0 kg
[~2018-05-21 00:50] MED LIST: [UNRECOGNIZED DRUG - REMARK]
--- NOTE | 2018-05-21 01:25 | NUR ---
Dr. Stack at bedside for MSE.
[2018-05-21] MEDS ORDERED: MORPHINE SULFATE 4 MG/1 ML DISP.SYRIN IV ONE (01:30)
[2018-05-21] MEDS ORDERED: VANCOMYCIN IV 1,000 MG in IV DEXTROSE 5% 250 ML IV ONE (01:30)
[2018-05-21] MEDS ORDERED: ONDANSETRON 4 MG/2 ML VIAL IV ONE ×2 (01:30→03:45)
[2018-05-21] MEDS ORDERED: ONDANSETRON 4 MG/2 ML VIAL ONE ×2 (01:45→03:40)
[2018-05-21] MEDS ORDERED: MORPHINE SULFATE 4 MG/1 ML DISP.SYRIN ONE (01:45)
[2018-05-21] MEDS ORDERED: VANCOMYCIN IV 200 ML ONE (01:45)
[2018-05-21] MEDS ORDERED: HYDROMORPHONE 1 MG/1 ML DISP.SYRIN ONE (03:40)
[2018-05-21] MEDS ORDERED: HYDROMORPHONE 1 MG/1 ML DISP.SYRIN IV ONE (03:45)
--- NOTE | 2018-05-21 06:05 | NUR ---
Patient discharged to home in stable conditon. Written and verbal after care instructions given. Patient verbalizes understanding of instructions. Patient ambulated out of ER with steady gait, no acute signs of distress, VSS, all belongings taken, IV site discontinued.
[2018-05-21 06:08] VITALS: BP 135/40
== END 2018-05-21 06:09 | disposition home or self-care (01) ==
LOC: ER 00:56
DX: L03.116 Cellulitis of left lower limb (principal); F11.10 Opioid abuse, uncomplicated; F15.10 Other stimulant abuse, uncomplicated; F12.10 Cannabis abuse, uncomplicated; F17.200 Nicotine dependence, unspecified, uncomplicated; I10 Essential (primary) hypertension; Z59.0 Homelessness
CPT/HCPCS: 96365; 96375; 96376; 99283; J1170; J2270; J2405 ×2; J3370; A4663

== ENCOUNTER 2018-05-23 18:57 | Emergency (ER) | payer MEDICARE, OTHER ==
[~2018-05-23] VITALS: Ht 175.3 cm; Wt 68.0 kg
--- NOTE | 2018-05-23 19:15 | NUR ---
Pt. in room requesting a medication refill,
--- NOTE | 2018-05-23 19:20 | NUR ---
at bedside for MSE
--- NOTE | 2018-05-23 19:41 | NUR ---
Patient discharged to home in stable conditon. Written and verbal after care instructions given. Patient verbalizes understanding of instructions. Pt. d/c per MD orders, pt. was aggressive and verbally threatening, security called to escort pt. off unit,
== END 2018-05-23 19:46 | disposition home or self-care (01) ==
LOC: ER 19:00
DX: L03.116 Cellulitis of left lower limb (principal); Z76.5 Malingerer [conscious simulation]; I10 Essential (primary) hypertension; F17.200 Nicotine dependence, unspecified, uncomplicated; F12.10 Cannabis abuse, uncomplicated; F15.10 Other stimulant abuse, uncomplicated; F11.10 Opioid abuse, uncomplicated; Z59.0 Homelessness
CPT/HCPCS: A4663

== ENCOUNTER 2018-08-13 09:48 | Emergency (ER) | payer MEDICARE, OTHER ==
[~2018-08-13] VITALS: Ht 177.8 cm; Wt 72.6 kg
[2018-08-13] MEDS ORDERED: LIDOCAINE HCL 2% 20 ML VIAL IJ ONE (10:00)
[2018-08-13] MEDS ORDERED: KETOROLAC TROMETHAMINE 30 MG INJ ONE (10:08)
[2018-08-13] MEDS ORDERED: KETOROLAC TROMETHAMINE 30 MG INJ IM ONE (10:15)
--- NOTE | 2018-08-13 10:44 | NUR ---
R FLANK ABSCESS I&D, THEN PACKED USING 2 INCH IODOFORM, BY VERONICA GUTIÉRREZ.
[2018-08-13 10:48] VITALS: BP 115/74
--- NOTE | 2018-08-13 10:48 | NUR ---
Patient discharged to home in stable conditon. Written and verbal after care instructions given. Patient verbalizes understanding of instructions. PT D/C W/ PRESCRIPTIONS. ALL BELONGINGS W/ PT. PT SELF-AMBULATED W/O DIFFICULTY.
== END 2018-08-13 10:49 | disposition home or self-care (01) ==
LOC: ER 09:48
DX: L02.211 Cutaneous abscess of abdominal wall (principal); I10 Essential (primary) hypertension; F17.290 Nicotine dependence, other tobacco product, uncomplicated; Z79.899 Other long term (current) drug therapy; Z59.0 Homelessness
CPT/HCPCS: 87070; 87077; A4217; A4663; J1885

== ENCOUNTER 2019-05-20 12:24 | Emergency (ER) | payer MEDICARE, OTHER ==
[~2019-05-20] VITALS: Ht 177.8 cm; Wt 72.6 kg
--- NOTE | 2019-05-20 12:49 | NUR ---
davian benavides at bedside for mse.
[2019-05-20 12:58] VITALS: BP 133/68
--- NOTE | 2019-05-20 12:58 | NUR ---
Patient discharged to home in stable conditon. Written and verbal after care instructions given. Patient verbalizes understanding of instructions. All belongings w/ pt. pt self-ambulated w/o difficulty.
== END 2019-05-20 12:59 | disposition home or self-care (01) ==
LOC: ER 12:24
DX: L03.114 Cellulitis of left upper limb (principal); I10 Essential (primary) hypertension; F17.200 Nicotine dependence, unspecified, uncomplicated; F12.10 Cannabis abuse, uncomplicated; F15.10 Other stimulant abuse, uncomplicated; F11.10 Opioid abuse, uncomplicated
CPT/HCPCS: A4663